=== PATIENT | male | born 1965 ===

== ENCOUNTER 2018-07-03 07:24 | Day surgery (SDC) | payer OTHER ==
[~2018-07-03] VITALS: Ht 180.3 cm; Wt 93.0 kg
[2018-07-03] VITALS (7 sets, daily range): BP systolic 112–121; BP diastolic 70–84
--- NOTE | 2018-07-03 06:33 | Anethesia Preoperative Eval ---
Anesthesia Pre-op PMH/ROS General Date of Evaluation: Jul 03, 2018 Time of Evaluation: 06:32 Anesthesiologist: jocelyn ASA Score: ASA 3 Mallampati Score Class I : Soft palate, uvula, fauces, pillars visible Class II: Soft palate, uvula, fauces visible Class III: Soft palate, base of uvula visible Class IV: Only hard plate visible Mallampati Classification: Class II Surgeon: ioana Diagnosis: gerd Surgical Procedure: egd w/bx Anesthesia History: none Social History: smoking Family History: no anesthesia problems Allergies: Coded Allergies: No Known Allergies (Unverified , 07/03/18) Medications: see eMAR Past Medical History Gastrointestinal/Genitourinary: Reports: GERD, other - testicular cancer Anesthesia Pre-op Phys. Exam Physician Exam Last Vital Signs Date Time Temp Pulse Resp B/P (MAP) Pulse Ox O2 Delivery O2 Flow Rate FiO2 07/03/18 08:03 97.8 72 18 117/84 (95) 97 97.8 07/03/18 07:50 Room Air Constitutional: NAD Neurologic: CN 2-12 intact Cardiovascular: RRR Respiratory: CTA Gastrointestinal: S/NT/ND Airway Exam Mallampati Score: Class II MO: full Neck: short TMD: 2fb ROM: full Anesthesia Pre-op A/P Risk Assessment & Plan Assessment: asa3 Plan: mac Status Change Before Surgery: No Pre-Antibiotics Drug: Melita Nguyen MD Jul 03, 2018 06:32
[~2018-07-03 07:24] MED LIST: Atropine Inj 1mg/10ml Syr IV PRN; DiphenhydrAMINE 50mg/ml Inj IVP PRN; LR 1000ml 1,000 ML IVLG SCH; Labetalol 5mg/ml 20ml vial IV PRN; Midazolam 2mg/2ml Inj IVP PRN; fentaNYL 100 mcg/2 mL IV PRN
[2018-07-03] MEDS ORDERED: METFORMIN HCL850 M1 ORAL (08:03)
--- NOTE | 2018-07-03 08:43 | Short Stay Surgery H&P ---
History of Present Illness History of Present Illness Chief Complaint Abdominal pains, GERD HPI Michele Melchor is a 52 year old male who was admitted on for GERD/Abdominal pains Patient History Allergies: Coded Allergies: No Known Allergies (Unverified , 07/03/18) Medication History Scheduled Metformin Hcl* (Metformin Hcl*), 850 MG ORAL BID, (Reported) Review of Systems Cardiovascular: Reports: no symptoms Respiratory: Reports: no symptoms Skeletal: Reports: trauma Gastrointestinal: Reports: gastro esophageal reflux disease Genitourinary: Reports: no symptoms Neurologic: Reports: no symptoms Endocrine: Reports: diabetes - type 2 Hematologic: Reports: no symptoms Physical Exam Vital Signs Last Vital Signs Date Time Temp Pulse Resp B/P (MAP) Pulse Ox O2 Delivery O2 Flow Rate FiO2 07/03/18 08:03 97.8 72 18 117/84 (95) 97 97.8 07/03/18 07:50 Room Air Skin: normal HENT: normal Heart: normal Lungs: normal Abdomen: abnormal Extremities: normal Genitourinary: normal Plan Plan of Care Upper GI. endoscopy and biopsy Preop Interventions None Summary of Findings See the reports Attestation Are the patient's medical conditions optimized for surgery? Attestation Response: yes Preston Luna MD Jul 03, 2018 08:43
--- NOTE | 2018-07-03 08:44 | Pre-Procedure Note/Attestation ---
Pre-Procedure Note/Attestation Complete Prior to Procedure Planned Procedure: left Procedure Narrative: Examination of the upper GI tract via endoscopy with obtaining biopsy Indications for Procedure Pre-Operative Diagnosis: R/O Peptic ulcer/gastritis Attestation I attest that I discussed the nature of the procedure; its benefits; risks and complications; and alternatives (and the risks and benefits of such alternatives ), prior to the procedure, with the patient (or the patient's legal artist's representative). I attest that, if there was a reasonable possibility of needing a blood transfusion, the patient (or the patient's legal artist's representative) was given the [facility] standardized written summary, pursuant to the [place] Blood Safety Act ([place] Health and Safety Code # 1645, as amended). I attest that I re-evaluated the patient just prior to the surgery and that there has been no change in the patient's H&P, except as documented below: Preston Luna MD Jul 03, 2018 08:44
[2018-07-03] MEDS ORDERED: Lidocaine 1% MPF 10mg/ml 5ml ONE (08:45)
[2018-07-03] MEDS ORDERED: LR 1000ml ONE (08:45)
[2018-07-03] MEDS ORDERED: Propofol 200mg/20ml IV ONE (08:45)
--- NOTE | 2018-07-03 09:07 | Endoscopy Procedure Note ---
Endoscopy Procedure Note General Indication for Procedure: abdominal pains/GERD Procedures Performed: EGD - Minimal gastritis, otherwise normal upper GI endoscopy. Biopsy was obtained per random from gastric body. Specimen: yes Estimated Blood Loss: none Anesthesia Anesthesiologist: Dr. Saha Anesthesia: moderate sedation Medications Medication Given: see anesthesia record Inserted Devices Implant(s) used?: No Quality Quality of Bowel Preparation: Excellent Was there any complications?: No GI Core Measures 50 yrs or older w/o bx or poly: Not Applicable 10yrs. F/U not recommended: Not Applicable If not recommended, why?: Med reason:<3 yrs.: System Reason:<3 yrs.: Preston Luna MD Jul 03, 2018 09:07
--- NOTE | 2018-07-03 09:08 | Discharge Instructions ---
Discharge Instructions Discharge Instructions Follow up with: see the docotr in office after 2 weeks For Congestive Heart Failure Reminder Report to your physician any weight gain of 5 pounds or more in one week. Preston Luna MD Jul 03, 2018 09:08
--- NOTE | 2018-07-03 09:14 | Immediate Post-Op Evaluation ---
Immediate Post-Op Evalulation Immediate Post-Op Evalulation Procedure: egd w/bx Date of Evaluation: Jul 03, 2018 Time of Evaluation: 09:14 IV Fluids: 150ml lr Blood Products: none Estimated Blood Loss: negligible Blood Pressure Diastolic: 70 Pulse Rate: 63 Respiratory Rate: 18 O2 Sat by Pulse Oximetry: 99 Temperature (Fahrenheit): 97.2 Pain Score (1-10): 0 Nausea: No Vomiting: No Complications none Patient Status: awake, reacts, patent Hydration Status: adequate Drug: Melita Nguyen MD Jul 03, 2018 09:14
--- NOTE | 2018-07-03 15:12 | 48 Hour Post Anesthesia Eval ---
Post Anesthesia Evaluation Procedure: egd w/bx Date of Evaluation: Jul 03, 2018 Time of Evaluation: 09:16 Blood Pressure Systolic: 118 0: 74 Pulse Rate: 64 Respiratory Rate: 18 Temperature (Fahrenheit): 97.2 O2 Sat by Pulse Oximetry: 99 Airway: patent Nausea: No Vomiting: No Pain Intensity: 0 Hydration Status: adequate Cardiopulmonary Status: stable Mental Status/LOC: patient returned to baseline Post-Anesthesia Complications: none Follow-up care needed: N/A Melita Peraza MD Jul 03, 2018 15:12
--- NOTE | 2018-07-03 16:00 | Operative Note - Dictated ---
DATE OF OPERATION: 07/03/2018 PROCEDURE: Esophagogastroduodenoscopy with biopsy. PREOPERATIVE DIAGNOSES: Abdominal pain and history of gastroesophageal reflux, rule out peptic ulcer disease. POSTOPERATIVE DIAGNOSIS: Minimal generalized gastritis, otherwise completely normal upper GI endoscopy. Biopsy was taken per random from gastric body. MEDICATION USED: Per Dr. Saha, anesthesiologist. INSTRUMENT: GIF Olympus upper GI video endoscope. DESCRIPTION OF PROCEDURE: The patient after arriving endoscopy unit, was told about risks and benefits of the procedure, which he accepted and signed informed consent. At this time, he was put in the left lateral decubitus position. After adequate IV sedation, the scope was gently passed through the cricopharyngeal area, was lodged into the upper esophagus, and gradually advanced towards the gastroesophageal junction. The entire length of the esophagus at this time looked to be completely normal. There was no any evidence of ulceration, inflammatory process, stricture, bleeding, etc. At this time, the scope was passed into the gastric cavity and there was no any evidence of hiatal hernia. After insufflation of air into the stomach, the areas of the fundus and the body and the antrum were examined in a gradual manner and it revealed evidence of minimal inflammatory process consistent with mild gastritis. Otherwise, there was no other abnormalities. One random biopsy from gastric body was obtained and subsequently, the scope was passed through the pylorus. First and second portion of duodenum were also found to be completely normal. At this time, the scope was pulled out and the procedure was terminated. The patient tolerated the procedure well and left the endoscopy room in a good condition. Said Jessica Luna DR: FAIZAN JOB#: [id number] CC:
--- NOTE | 2018-07-03 16:45 | Pre-op HX & Phy Repo 2 SIG ---
DATE OF ADMISSION: 07/03/2018 HISTORY: The patient is a 52-year-old non-Kiswahili speaking gentleman who is being seen prior to undergoing the procedure for upper GI endoscopy for which he has been scheduled to evaluate his gastrointestinal complaint, especially epigastric pain that he has been complaining for some time along with significant heartburn. The patient was seen in my office approximately 3 months ago when he was referred for evaluation at that time. The patient was complaining of the epigastric discomfort and heart burn as well and per medical records, it was reported that he had been seen by multiple physicians and also received upper GI x-rays, which have been reported to be normal at 1 time. As such, the patient was seen by his press box custodian who is Dr. Pena who recommended the patient should undergo an upper GI endoscopy for further evaluation of his symptoms. 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 At this time, the patient reports that in the past, he has been treated with medications such as H2 blockers and Pepto-Bismol for the condition of heartburn, was most recently as he had been prescribed for gastroesophageal reflux after accident at work site. The patient also reports that he had been prescribed in the past medications are nonsteroidal anti-inflammatory agents as well and also he is currently taking these medications for his bodily pain that he has suffered subsequent to his work injury. He takes his medication such as ibuprofen 500 mg daily for the pains that he has of almost all different parts of his body. The applicant denies having any GI bleeding such as hematemesis, melena, hematochezia, constipation, major diarrhea, etc. There has been no weight loss. MEDICAL HISTORY: The patient does have diabetes mellitus for which he has been prescribed medications. PAST SURGICAL HISTORY: The patient does have surgery of the abdomen with the diagnosis of a retroperitoneal lymph node, which was basically examined in 1988. However, he is not clear as to what was the diagnosis. Also, he has undergone right knee repair approximately 5 years ago. ALLERGIES: None significant. MEDICATIONS: Metformin 850 mg per diabetes currently and NSAID medications I mentioned. REVIEW OF SYSTEMS: Basically, history of present illness. PHYSICAL EXAMINATION: GENERAL: Reveals alert and oriented gentleman, does not seem to be in any acute distress. He looks well developed and nourished, and answers the questions properly. VITAL SIGNS: All stable. HEENT: Normocephalic. Pupils equal in size and reactive to light. No evidence of jaundice. Buccal cavity, tongue midline, well hydrated. No ulcer. NECK: Supple. No JVD or thyromegaly. CHEST: Clear to auscultation and percussion. No rales or rhonchi heard. HEART: S1 and S2 normal. Regular rhythm. No murmurs. ABDOMEN: Soft, but there is minimal tenderness over the epigastric and upper part of the abdomen, but there is no organomegaly or any masses noted. EXTREMITIES: Within normal limits. NEUROLOGICAL: Within normal limits. PRELIMINARY PREOPERATIVE IMPRESSION: 1. Epigastric pain of uncertain etiology, rule out NSAID-induced gastropathy, peptic ulcer disease, esophagitis, gastritis subsequent to work accident. 2. History of bodily injury related to work accident. 3. Diabetes mellitus, type 2. RECOMMENDATION: The applicant seems to be quite stable at this time to undergo the procedure of upper GI endoscopy for which he has been scheduled. He understands the risks and benefits and will sign the consent. Said Jessica Luna DR: FUENTES JOB#: [id number] CC:
== END 2018-07-03 10:25 | disposition home or self-care (01) ==
LOC: GAS 07:24
DX: K29.70 Gastritis, unspecified, without bleeding (principal); E11.9 Type 2 diabetes mellitus without complications; Z79.84 Long term (current) use of oral hypoglycemic drugs; F17.200 Nicotine dependence, unspecified, uncomplicated; Z85.47 Personal history of malignant neoplasm of testis
CPT/HCPCS: 43239; 82962; J2704; J7120; 94003; 94150